=== PATIENT | female | born 1975 | race Caucasian/White ===

== ENCOUNTER → 2017-05-28 | Outpatient (CLI) | payer BC ==
--- NOTE | 2017-05-28 14:18 | KCIC ---
EXAM: Left calcaneus, 3 views. HISTORY: Pain. COMPARISON: None. FINDINGS: 3 views of the left calcaneus are obtained. There is no fracture, dislocation or subluxation. There is a tiny plantar spur. No osseous lesion is seen. IMPRESSION: No acute osseous finding. Electronically signed by: Estephania Morales MD (05/28/2017 2:15 PM) [id number]
== END | disposition home or self-care (01) ==
LOC: KCIC 13:47
PROVIDERS: ATTEND Nurse Practitioner Family
DX: M25.572 Pain in left ankle and joints of left foot (principal)
CPT/HCPCS: 73650